=== PATIENT | female | born 1990 | race Caucasian/White ===

== ENCOUNTER 2019-01-19 21:48 | Emergency (ER) | payer OTHER ==
[2019-01-19 21:54] VITALS: BP 123/50; PULSE 77; TEMP 98.4; BMI 25.7
--- NOTE | 2019-01-19 21:55 | PDOC ---
Rapid Medical Evaluation Chief Complaint: Pain Time Seen by Provider: 01/19/19 21:51 Medical Evaluation: 01/19/19 21:52 I have performed a brief in-person evaluation of this patient. The patient presents with a chief complaint of: abd pain x 4 days. NO fevers/ no dysuria/ no N/V/C/D Pertinent physical exam findings: LMP 12/13 I have ordered the following: UA/ UCG The patient will proceed to the ED for further evaluation. 01/19/19 21:53 Discharge Disposition - Diagnosis Abdominal pain - Referrals - Patient Instructions - Post Discharge Activity
--- NOTE | 2019-01-19 22:49 | PDOC ---
History of Present Illness - General Chief Complaint: Pain Stated Complaint: BACK PAIN Time Seen by Provider: 01/19/19 21:51 History Source: Patient Exam Limitations: No Limitations - History of Present Illness Travel History: No Initial Comments: 01/19/19 22:45 HISTORY OF PRESENT ILLNESS: 28-year-old woman he denies medical history presents emergency department for evaluation of suprapubic pressure and pulling. Patient reports symptoms have been present for the past 2 days which is accompanied by urinary frequency. She denies any dysuria or hematuria. Patient denies any radiation of her pain and rates the pain 6/10. Patient denies any vaginal bleeding or vaginal discharge. Her last menstrual period was 4/. Patient is unsure if she is . No recent travel or sick contacts. PAST MEDICAL HISTORY: Denies past medical history SURGICAL HISTORY: Denies ALLERGIES: No known drug allergies REVIEW OF SYSTEMS General/Constitutional: Denies fever or chills. Denies weakness, weight change. HEENT: Denies change in vision. Denies ear pain or discharge. Denies sore throat. Cardiovascular: Denies chest pain or shortness of breath. Respiratory: Denies cough, wheezing, or hemoptysis. Gastrointestinal: Denies nausea, vomiting, diarrhea or constipation. Denies rectal bleeding. Genitourinary: see HPI Musculoskeletal: Denies joint or muscle swelling or pain. Denies neck or back pain. Skin and breasts: Denies rash or easy bruising. Neurologic: Denies headache, vertigo, loss of consciousness, or loss of sensation. Psychiatric: Denies depression or anxiety. Endocrine: Denies increased thirst. Denies abnormal weight change. Hematologic/Lymphatic: Denies anemia, easy bleeding, or history of blood clots. Allergic/Immunologic: Denies hives or skin allergy. Denies latex allergy. PHYSICAL EXAM General Appearance: Well-appearing, appropriately dressed. No apparent distress , no intoxication. Respiratory/Chest: Lungs CTAB. No shortness of breath, chest tenderness, respiratory distress, accessory muscle use. No crackles, rales, rhonchi, stridor , wheezing, dullness Cardiovascular: RRR. S1, S2. No JVD, murmur, bradycardia, tachycardia. Gastrointestinal/Abdominal: Normal bowel sounds. Abdomen soft, non-distended. Suprapubic tenderness. No rebound tenderness. No organomegaly, pulsatile mass, guarding, hernia, hepatomegaly, splenomegaly. Lymphatic: No adenopathy, tenderness. Musculoskeletal/Extremities: Normal inspection. FROM of all extremities, normal capillary refill. Pelvis Stable. No CVA tenderness. No tenderness to extremities, pedal edema, swelling, erythema or deformity. Past History - Past Medical History Allergies/Adverse Reactions: Allergies Allergy/AdvReac Type Severity Reaction Status Date / Time No Known Allergies Allergy Verified 01/19/19 21:54 Home Medications: Ambulatory Orders Cephalexin Monohydrate [Keflex -] 500 mg PO BID #20 capsule 01/20/19 95/Iron Fum/Folic/Dha [ + Dha Combo Pack] 1 each PO DAILY #30 combo..pkg 01/20/19 COPD: No - Suicide/Smoking/Psychosocial Hx Smoking History: Never smoked *Physical Exam - Vital Signs Last Vital Signs Temp Pulse Resp BP Pulse Ox 98.4 F 77 18 123/50 L 99 01/19/19 21:51 01/19/19 21:51 01/19/19 21:51 01/19/19 21:51 01/19/19 21:51 ED Treatment Course - LABORATORY CBC & Chemistry Diagram: 01/19/19 23:26 01/19/19 23:26 Medical Decision Making - Medical Decision Making 01/19/19 22:47 A/P: 28-year-old woman with urinary frequency and suprapubic pain for 2 days Mild suprapubic tenderness present. Normoactive bowel sounds. Abdomen soft nondistended. Differential diagnosis includes but is not limited to- normal , cystitis, ectopic , STI, ovarian torsion, fibroids, ovarian cysts Basic labs Urine testing Urinalysis with urine culture Transvaginal ultrasound Patient is refusing analgesics this time 01/19/19 23:49 Patient with positive UCG. Beta hCG has been added to previously collected laboratory specimen. 01/20/19 00:48 Ultrasound as read by imaging meat boner and slicer: Small intrauterine gestational sac with yolk sac and pole measuring gestational age 5 weeks 6 days. No detectable heart rate, possibly due to early gestational age/technical issues versus demise. Correlation with beta hCG levels and follow-up ultrasound recommended to reassess viability. No adnexal masses appreciated. No ovarian torsion. Color flow bilaterally with appropriate arterial and venous waveforms CBC is notable for mild anemia 9.3/30.1. No active bleeding at this time. CMP is unremarkable. Beta hCG is 9229. Urinalysis is pending 01/20/19 00:48 01/20/19 02:03 Urinalysis notable for 2+ leuk esterase and 10 wbc's on high-power field. Patient is I will treat with Keflex 500 mg twice a day pending cultures. I discussed the physical exam findings, ancillary test results and final diagnoses with the patient. I answered all of the patient's questions. The patient was satisfied with the care received and felt comfortable with the discharge plan and treatment plan. The patient will call their primary care physician within 24 hours to arrange follow-up and will return to the Emergency Department with any new, persistent or worsening symptoms. *DC/Admit/Observation/Transfer Diagnosis at time of Disposition: Qualifiers: Weeks of gestation: less than 8 weeks Qualified Code(s): Z3A.01 - Less than 8 weeks gestation of UTI (urinary tract infection) during Qualifiers: Trimester: first trimester Qualified Code(s): O23.41 - Unspecified infection of urinary tract in , first trimester - Discharge Dispostion Disposition: HOME Condition at time of disposition: Stable Decision to Admit order: No - Prescriptions Prescriptions: Cephalexin Monohydrate [Keflex -] 500 mg PO BID #20 capsule 95/Iron Fum/Folic/Dha [ + Dha Combo Pack] 1 each PO DAILY #30 combo..pkg - Referrals - Patient Instructions Additional Instructions: Take Keflex 500mg twice a day until all medications are complete. Finish all medicine even if you feel better. Take your vitamins. Your beta hCG is 9229 Keep well-hydrated. Avoid tobacco and alcohol as well as illegal drugs. Make an appointment with your MANAGER CONTROL for reevaluation. Return to the emergency department or your gynecologistin 2-3 days for repeat blood testing and ultrasound. Return to the emergency department immediately for severe pain, vaginal bleeding that requires more than 2 pads per hour or for any other symptoms. Thank you very much for choosing us to provide your emergent health care needs. [place] Keflex 500 mg dos veces al da hasta que todos los medicamentos estn completos. Termine todos los medicamentos incluso si se siente mejor. [place] johnny vitaminas prenatales. Tu beta hCG es 9229 Mantener kelly hidratado. Evite el tabaco y el alcohol, as kayden las drogas ilegales. Diana rory carlos con castro obstetra / gineclogo para castro reevaluacin. Regrese al departamento de emergencias oa castro gineclogo en 2-3 omer para repetir las pruebas de di y la ecografa. Regrese al departamento de emergencias inmediatamente para el dolor intenso, el sangrado vaginal que requiere ms de 2 compresas por hora o para cualquier otro sntoma. Muchas david por elegirnos para satisfacer johnny necesidades de atencin mdica de emergencia. - Post Discharge Activity
[2019-01-19 23:08] LABS: HCG,QUALITATIVE URINE Positive
[2019-01-19 23:31] LABS: BASO % 0.7 % (0-2.0); EOS % 1.2 % (0-4.5); HEMATOCRIT 30.1 % (32.4-45.2); HEMOGLOBIN 9.3 GM/dL (10.7-15.3); LYMPH % 33.2 % (8-40); MCH 21.2 pg (25.7-33.7); MEAN CELL VOLUME 68.5 fl (80-96); MEAN PLT VOLUME 7.2 fl (7.5-11.1); MONO % 9.5 % (3.8-10.2); NEUT % 55.4 % (42.8-82.8); PLATELET COUNT 319 K/MM3 (134-434); RDW 17.7 % (11.6-15.6); WHITE BLOOD COUNT 5.8 K/mm3 (4.0-10.0)
[2019-01-19 23:52] LABS: ALBUMIN 3.4 g/dl (3.4-5.0); BILIRUBIN,TOTAL 0.2 mg/dL (0.2-1); CALCIUM 8.4 mg/dL (8.5-10.1); CREATININE 0.7 mg/dL (0.55-1.3); POTASSIUM 3.9 mmol/L (3.5-5.1); TOT PROT 6.7 g/dl (6.4-8.2)
[2019-01-20 01:45] LABS: EPI CELLS 6.1 /HPF (0-5/HPF); PH,URINE 6.5 (5.0-8.0); URINE APPEARANCE CLEAR; URINE BACTERIA 263.2 /hpf (NEGATIVE); URINE BILIRUBIN NEGATIVE (NEGATIVE); URINE CASTS 4 /lpf (0-8); URINE COLOR YELLOW; URINE GLUCOSE (UA) NEGATIVE (NEGATIVE); URINE KETONE TRACE (NEGATIVE); URINE LEUK ESTERASE 2+ (NEGATIVE); URINE NITRITE NEGATIVE (NEGATIVE); URINE PROTEIN NEGATIVE (NEGATIVE); URINE RBC 1 /hpf (0-4); URINE UROBILINOGEN 0.2 mg/dL (0.2-1.0); URINE WBC 10 /hpf (0-5)
== END 2019-01-20 02:12 | disposition home or self-care (01) ==
LOC: JER 21:48
DX: O26.891 Other specified pregnancy related conditions, first trimester (principal); O23.41 Unspecified infection of urinary tract in pregnancy, first trimester; Z3A.01 Less than 8 weeks gestation of pregnancy
CPT/HCPCS: 36415; 76830-TC; 80053; 81003; 84702; 84703; 85025; 87086; 99283-25

== ENCOUNTER 2019-02-12 21:16 | Emergency (ER) | payer OTHER | END 2019-02-13 04:26 | disposition home or self-care (01) | LOC: JER 02-13 04:26 | DX: O26.891 Other specified pregnancy related conditions, first trimester (principal); O23.41 Unspecified infection of urinary tract in pregnancy, first trimester; Z3A.09 9 weeks gestation of pregnancy ==

== ENCOUNTER 2019-09-15 06:50 | Inpatient (IN) | payer OTHER ==
[~2019-09-15 06:50] MED LIST: DEXTROSE 5%-LACTATED RINGERS 1,000 ML IV SCH
[2019-09-15] MEDS ORDERED: AMPICILLIN - 2 GM in SODIUM CHLORIDE 100 ML IVPB ONE (07:15)
[2019-09-15 08:20] VITALS: BMI 32.9
[2019-09-15 08:32] LABS: BASO % 0.6 % (0-2.0); EOS % 0.7 % (0-4.5); HEMATOCRIT 28.2 % (32.4-45.2); HEMOGLOBIN 9.1 GM/dL (10.7-15.3); LYMPH % 38.2 % (8-40); MCH 20.9 pg (25.7-33.7); MCHC 32.1 g/dl (32.0-36.0); MEAN PLT VOLUME 8.3 fl (7.5-11.1); MONO % 7.2 % (3.8-10.2); NEUT % 53.3 % (42.8-82.8); PLATELET COUNT 270 K/MM3 (134-434); RBC 4.35 M/mm3 (3.60-5.2); RDW 18.8 % (11.6-15.6); WHITE BLOOD COUNT 4.4 K/mm3 (4.0-10.0)
[2019-09-15 08:45] LABS: INR 0.82 (0.83-1.09); PROTHROMBIN TIME (PATIENT) 9.7 SEC (9.7-13.0)
[2019-09-15 08:48] LABS: ACTIVATED PTT 26.8 SECONDS (25.2-36.5)
[2019-09-15 09:03] LABS: BLOOD UREA NITROGEN 11.7 mg/dL (7-18); CALCIUM 8.8 mg/dL (8.5-10.1); CREATININE 0.6 mg/dL (0.55-1.3); POTASSIUM 3.9 mmol/L (3.5-5.1)
[2019-09-15] MEDS ORDERED: BUTORPHANOL TARTRATE 1 MG/ML VIAL ONE ×2 (10:15)
[2019-09-15] MEDS ORDERED: PROMETHAZINE HCL 25 MG/1 ML VIAL ONE (10:15)
[2019-09-15] MEDS ORDERED: BUTORPHANOL TARTRATE 2 MG/ML VIAL IVPB ONE (11:00)
[2019-09-15] MEDS ORDERED: PROMETHAZINE HCL 25 MG/1 ML VIAL IVPB ONE (11:00)
[2019-09-15] MEDS ORDERED: AMPICILLIN SODIUM 1 GM VIAL ONE (11:13)
[2019-09-15] MEDS ORDERED: AMPICILLIN - 1 GM in SODIUM CHLORIDE 100 ML IVPB SCH (11:15)
[2019-09-15] MEDS ORDERED: OXYTOCIN 30 UNITS in 0.9% NS 30 UNIT/500 ML INFUS.BAG IVPB ONE (12:11)
--- NOTE | 2019-09-15 12:23 | HP ---
Past Medical History - Primary Care Physician PCP:: Dr Bob - Admission History Source: Patient - Past Medical History ...: 4 ...Para: 2 ...Term: 2 ...: 0 ...Spon : 0 ...Induced : 1 ...Multiple Gestation: 0 ...LMP: 12/12/18 ... Weeks Gestation by Dates: 39.4 ...EDC by Dates: 09/18/19 ...EDC by Sono: 09/23/19 - Past Surgical History Past Surgical History: Yes: None Hx Myomectomy: No Hx Transabdominal Cerclage: No - Smoking History Smoking history: Never smoked Have you smoked in the past 12 months: No - Alcohol/Substance Use Hx Alcohol Use: No - Social History Usual Living Arrangement: Yes: With Spouse ADL: Independent History of Recent Travel: No Home Medications - Allergies Allergies/Adverse Reactions: Allergies Allergy/AdvReac Type Severity Reaction Status Date / Time No Known Allergies Allergy Verified 09/15/19 07:29 - Home Medications Home Medications: Ambulatory Orders Pnv No.95/Ferrous Fum/Folic AC [ Vitamin Tablet] 1 each PO DAILY Family Medical History Family History: Unable to Obtain Physical Exam - Maternity Vital Signs: Vital Signs Temperature 98.4 F 09/15/19 11:00 Pulse Rate 74 09/15/19 11:00 Respiratory Rate 09/15/19 11:00 Blood Pressure 134/78 09/15/19 11:00 O2 Sat by Pulse Oximetry (%) - Abdominal Exam/OB Number of Fetuses: Single Presentation: Vertex - Labs Lab Results: CBC, BMP 09/15/19 08:00 09/15/19 08:00 Assessment/Plan 29 yo F P4P2 with 39,4 weeks on labor Plan Anticipated
[2019-09-15] MEDS ORDERED: OXYTOCIN 30 UNITS in 0.9% NS 30 UNIT/500 ML INFUS.BAG IVPB SCH (12:30)
[2019-09-15 12:41] LABS: ANISOCYTOSIS 2+; MACROCYTOSIS 0; OVALOCYTE 1+; PLATELET ESTIMATE NORMAL; TEAR DROP CELLS 1+
--- NOTE | 2019-09-15 13:41 | PN ---
Progress Note (short form) - Note Progress Note: Patient complaning of pelvic pressure, [place]: Ctx Q1-2 min FHR: Category I VE: 8/90/0 Anticipating
[2019-09-15] MEDS ORDERED: WITCH HAZEL 50% (TUCKS) 40 PAD/JAR PAD TP PRN (14:11)
[2019-09-15] MEDS ORDERED: BENZOCAINE 28 GM HEMORRHOIDAL OINTMENT TP PRN (14:11)
[2019-09-15] MEDS ORDERED: BISACODYL 10 MG SUPP.RECT RC PRN (14:11)
[2019-09-15] MEDS ORDERED: BENZOCAINE 20% 57 GM BOTTLE TP PRN (14:11)
[2019-09-15] MEDS ORDERED: D5W-LR W/ 20 UNITS OXYTOCIN 20 UNIT/1,000 ML INFUS.BAG IV SCH (14:15)
--- NOTE | 2019-09-15 14:18 | PN ---
Delivery - Delivery Vaginal Delivery: Spontaneous Type of Anesthesia: Local Episiotomy/Laceration: None, 1st degree ( vertex viable baby Girl, head deliverd spontanously sholder and the rest of the body followed without difficulty, Placenta deliverd spontanesouly intact, APGARS 9/9, 1st degree pernial laceration repaired with 2-O chromic, EBL 300 ML. Mother and baby in stable condition. Instrument and sponge count correct.) Delivery, Single - [place] Feeding Plan Initial Plan: Elected not to breastfeed exclusively throughout hospitalization
[2019-09-15] MEDS ORDERED: ACETAMINOPHEN 325 MG TABLET (FP) ONE (14:24)
[2019-09-15] MEDS ORDERED: IBUPROFEN 600 MG TABLET (FP) PO ONE (14:24)
[2019-09-15] MEDS: IBUPROFEN 600 MG TABLET (FP) PO PRN ×3 (14:25→21:50)
[2019-09-15] MEDS: ACETAMINOPHEN 325 MG TABLET (FP) PO PRN ×3 (14:25→21:50)
[2019-09-15] MEDS ORDERED: OXYTOCIN 20 UNITS in 0.9% NS 20 UNIT/1,000 ML INFUS.BAG IV SCH (14:30)
[2019-09-15] MEDS ORDERED: OXYTOCIN 20 UNITS in 0.9% NS 20 UNIT/1,000 ML INFUS.BAG IV ONE (15:41)
[2019-09-15] MEDS: FERROUS SO4 325 MG TABLET (FP) PO SCH (21:50)
[2019-09-16 08:03] LABS: BASO % 0.3 % (0-2.0); EOS % 0.9 % (0-4.5); HEMATOCRIT 26.9 % (32.4-45.2); HEMOGLOBIN 8.5 GM/dL (10.7-15.3); LYMPH % 27.5 % (8-40); MCH 20.7 pg (25.7-33.7); MCHC 31.6 g/dl (32.0-36.0); MEAN CELL VOLUME 65.5 fl (80-96); MEAN PLT VOLUME 8.2 fl (7.5-11.1); MONO % 5.6 % (3.8-10.2); NEUT % 65.7 % (42.8-82.8); PLATELET COUNT 247 K/MM3 (134-434); RDW 18.6 % (11.6-15.6); WHITE BLOOD COUNT 7.4 K/mm3 (4.0-10.0)
[2019-09-16] MEDS: PRENATAL VITAMINS W/ FOLIC ACID TABLET (FP) PO SCH (10:51)
[2019-09-16] MEDS: FERROUS SO4 325 MG TABLET (FP) PO SCH ×2 (10:52→21:59)
--- NOTE | 2019-09-16 11:35 | DS ---
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 Signs: Vital Signs Temperature 98.1 F 09/16/19 05:47 Pulse Rate 76 09/16/19 05:47 Respiratory Rate 18 09/16/19 05:47 Blood Pressure 132/55 L 09/16/19 05:47 O2 Sat by Pulse Oximetry (%) Constitutional: Yes: Well Nourished, No Distress, Calm Eyes: Yes: WNL, Conjunctiva Clear, EOM Intact HENT: Yes: WNL, Atraumatic, Normocephalic Neck: Yes: WNL, Supple, Trachea Midline Cardiovascular: Yes: WNL, Regular Rate and Rhythm Respiratory: Yes: WNL, Regular, CTA Bilaterally Gastrointestinal: Yes: WNL ...Rectal Exam: Yes: WNL Renal/: Yes: WNL ....Post : Yes: Uterus firm, Uterus non-tender, Slight lochia rubra Breast(s): Yes: WNL Musculoskeletal: Yes: WNL Extremities: Yes: WNL Edema: No Integumentary: Yes: WNL Neurological: Yes: WNL, Alert, Oriented ...Motor Strength: WNL Psychiatric: Yes: WNL, Alert, Oriented Labs: CBC, BMP 09/16/19 07:00 09/15/19 08:00 Delivery - Delivery Vaginal Delivery: Spontaneous Type of Anesthesia: Local Episiotomy/Laceration: Perineal Extension/lac, 1st degree EBL (cc): 300 Delivery, Single - Stages of Labor Date 1st Stage Initiatied: 09/15/19 Time 1st Stage Initiated: 05:00 Date 2nd Stage Initiated: 09/15/19 Time 2nd Stage Initiated: 13:50 Date of Delivery: 09/15/19 Time of Delivery: 13:55 Time Placenta Delivered: 13:58 Placenta: Yes: Spontaneous - Condition of Infant Automotive Service Director/Clinical Ob Present: No Infant Gender: Female Weight: 3.175 kg Position: OA Total Hours ROM (Hrs/Mins): 7hrs 58min - 1 Minute Total Score: 9 5 Minutes Total Score: 9 - [place] Feeding Plan Initial Plan: Elected not to breastfeed exclusively throughout hospitalization Discharge Summary Problems reviewed: Yes Reason For Visit: LABOR In labor Procedures: Principal: Other Procedures: NONE Hospital Course: Stable Health Concerns: NONE Plan of Treatment: F/U in [facility], [place] in 6 weeks Condition: Good - Instructions Diet, Activity, Other Instructions: Regular. F/U in [facility] Referrals: Lexii Mehta MD [Staff Physician] - Disposition: HOME - Home Medications Comprehensive Discharge Medication List: Ambulatory Orders Pnv No.95/Ferrous Fum/Folic AC [ Vitamin Tablet] 1 each PO DAILY
--- NOTE | 2019-09-16 11:41 | PN ---
Post Progress Note Post Day: 1 Type of Delivery: Vital Signs: Vital Signs Temperature 98.1 F 09/16/19 05:47 Pulse Rate 76 09/16/19 05:47 Respiratory Rate 18 09/16/19 05:47 Blood Pressure 132/55 L 09/16/19 05:47 O2 Sat by Pulse Oximetry (%) Breast Exam: Yes: Soft, Engorged Uterus: Yes: Fundus Firm, Fundus below umbilicus, Non-tender Abdomen/GI: Yes: Abdomen soft, Tolerating PO Lochia: Yes: Rubra Lochia, amount: Small Extremities: Yes: Calves non-tender Perineum: Yes: Intact Activity: Ambulating - Labs Labs: CBC WBC 7.4 K/mm3 (4.0-10.0) 09/16/19 07:00 RBC 4.10 M/mm3 (3.60-5.2) 09/16/19 07:00 Hgb 8.5 GM/dL (10.7-15.3) L 09/16/19 07:00 Hct 26.9 % (32.4-45.2) L 09/16/19 07:00 MCV 65.5 fl (80-96) L 09/16/19 07:00 MCH 20.7 pg (25.7-33.7) L 09/16/19 07:00 MCHC 31.6 g/dl (32.0-36.0) L 09/16/19 07:00 RDW 18.6 % (11.6-15.6) H 09/16/19 07:00 Plt Count 247 K/MM3 (134-434) 09/16/19 07:00 MPV 8.2 fl (7.5-11.1) 09/16/19 07:00 Absolute Neuts (auto) 4.9 K/mm3 (1.5-8.0) 09/16/19 07:00 Neutrophils % 65.7 % (42.8-82.8) D 09/16/19 07:00 Lymphocytes % 27.5 % (8-40) D 09/16/19 07:00 Monocytes % 5.6 % (3.8-10.2) 09/16/19 07:00 Eosinophils % 0.9 % (0-4.5) 09/16/19 07:00 Basophils % 0.3 % (0-2.0) 09/16/19 07:00 Nucleated RBC % 0 % (0-0) 09/16/19 07:00 Hypochromia 1+ 09/15/19 08:00 Platelet Estimate Normal 09/15/19 08:00 Polychromasia 1+ 09/15/19 08:00 Poikilocytosis 1+ 09/15/19 08:00 Anisocytosis 2+ 09/15/19 08:00 Microcytosis 2+ 09/15/19 08:00 Macrocytosis 0 09/15/19 08:00 Tear Drop Cells 1+ 09/15/19 08:00 Ovalocytes 1+ 09/15/19 08:00 Other Findings, Remarks: PPD#1 Patient seen and examined at bed side doing well, stable, has no complaints. VS: WNL PE: AAOX3 in NAD HEENT: NC/AT, supple Chest: CTA, S1/S2 AbD: Soft, NT, uterus firm below the Umbilicus, +ve BS EXT: -C/C/E, -ve Homans BL VE: normal Lochia A/P PPD#1, doing well, stable, has no complaints. Asymptomatic anemia, cont. iron Dc home tomorrow if cont. to be stable [facility]
[2019-09-16] MEDS ORDERED: SENNOSIDES/DOCUSATE COMBO (SENNA PLUS) TABLET (UD) PO PRN (22:00)
[2019-09-16] MEDS: IBUPROFEN 600 MG TABLET (FP) PO PRN (22:15)
[2019-09-16] MEDS: ACETAMINOPHEN 325 MG TABLET (FP) PO PRN (22:16)
[2019-09-17 09:23] VITALS: BP 130/85; PULSE 66; TEMP 98.1
[2019-09-17] MEDS: FERROUS SO4 325 MG TABLET (FP) PO SCH (09:48)
[2019-09-17] MEDS: PRENATAL VITAMINS W/ FOLIC ACID TABLET (FP) PO SCH (09:48)
[2019-09-17] MEDS: IBUPROFEN 600 MG TABLET (FP) PO PRN (10:43)
[2019-09-17] MEDS: ACETAMINOPHEN 325 MG TABLET (FP) PO PRN (10:44)
[2019-09-18 09:26] LABS: POC NITRAZINE POS
== END 2019-09-17 13:20 | disposition home or self-care (01) | DRG 560 ==
LOC: JLDR 06:50 → J3W 15:45
PROVIDERS: ADMIT Internal Medicine; ATTEND Internal Medicine
PROC: 0HQ9XZZ Repair Perineum Skin, External Approach (ICD-10-PCS; principal; 2019-09-15)
PROC: 10E0XZZ Delivery of Products of Conception, External Approach (ICD-10-PCS; 2019-09-15)
DX: O70.0 First degree perineal laceration during delivery (principal); Z3A.39 39 weeks gestation of pregnancy; Z37.0 Single live birth
CPT/HCPCS: 36415; 59409; 80048; 83986-QW; 85025; 85610; 85730; 86593; 86762; 86850; 86900; 86901; 87389

== ENCOUNTER 2023-01-04 19:19 | Emergency (ER) | payer OTHER ==
[2023-01-04 19:27] VITALS: RESP 16; BMI 28.5
[2023-01-04] MEDS ORDERED: ACETAMINOPHEN 1000 MG/100 ML BAG IVPB ONE (20:21)
[2023-01-04] MEDS ORDERED: ACETAMINOPHEN INJECTION 100 ML IVPB ONE (21:13)
[2023-01-04 21:39] LABS: BASO % 0.5 % (0-2.0); EOS % 0.6 % (0-4.5); HEMATOCRIT 24.6 % (32.4-45.2); HEMOGLOBIN 7.6 GM/dL (10.7-15.3); LYMPH % 26.1 % (8-40); MCHC 30.7 g/dl (32.0-36.0); MEAN CELL VOLUME 58.9 fl (80-96); MEAN PLT VOLUME 7.4 fl (7.5-11.1); MONO % 6.6 % (3.8-10.2); NEUT % 66.2 % (42.8-82.8); PLATELET COUNT 354 10^3/uL (134-434); RBC 4.18 M/mm3 (3.60-5.2); RDW 17.8 % (11.6-15.6); WHITE BLOOD COUNT 7.1 K/mm3 (4.0-10.0)
[2023-01-04 21:44] LABS: MCH 18.1 pg (25.7-33.7)
[2023-01-04 21:52] LABS: PH,URINE 5.5 (5.0-8.0); URINE APPEARANCE CLEAR; URINE BILIRUBIN NEGATIVE (NEGATIVE); URINE COLOR YELLOW; URINE GLUCOSE (UA) NEGATIVE (NEGATIVE); URINE KETONE NEGATIVE (NEGATIVE); URINE LEUK ESTERASE NEGATIVE (NEGATIVE); URINE NITRITE NEGATIVE (NEGATIVE); URINE PROTEIN NEGATIVE (NEGATIVE); URINE UROBILINOGEN 0.2 mg/dL (0.2-1.0)
[2023-01-04 22:20] LABS: ANISOCYTOSIS 2+; MACROCYTOSIS 0; TEAR DROP CELLS 1+
[2023-01-04 23:11] LABS: ALBUMIN 3.5 g/dl (3.4-5.0); BLOOD UREA NITROGEN 16.1 mg/dL (7-18); CALCIUM 8.9 mg/dL (8.5-10.1)
[2023-01-04 23:15] LABS: CREATININE 0.7 mg/dL (0.55-1.3)
[2023-01-04 23:16] LABS: BILIRUBIN,TOTAL 0.2 mg/dL (0.2-1); TOT PROT 7.2 g/dl (6.4-8.2)
[2023-01-05 01:54] VITALS: BP 111/42; PULSE 67; TEMP 98.2
== END 2023-01-05 01:59 | disposition home or self-care (01) ==
LOC: JER 19:19
PROC: 3E033NZ Introduction of Analgesics, Hypnotics, Sedatives into Peripheral Vein, Percutaneous Approach (ICD-10-PCS; principal; 2023-01-04)
DX: R10.31 Right lower quadrant pain (principal); D25.9 Leiomyoma of uterus, unspecified; D64.9 Anemia, unspecified; R11.10 Vomiting, unspecified
CPT/HCPCS: 36415; 74177-TC; 76830-TC; 80053; 81003; 83690; 84703; 85025; 87081; 87086; 99285-25; Q9967

== ENCOUNTER 2024-06-25 17:47 | Emergency (ER) | payer OTHER ==
[2024-06-25 17:58] VITALS: TEMP 99; BMI 30.4
[2024-06-25 21:18] LABS: BASO % 0.6 % (0-2.0); EOS % 0.4 % (0-4.5); HEMATOCRIT 29.2 % (32.4-45.2); HEMOGLOBIN 9.2 GM/dL (10.7-15.3); LYMPH % 24.2 % (8-40); MCHC 31.5 g/dl (32.0-36.0); MEAN CELL VOLUME 60.4 fl (80-96); MEAN PLT VOLUME 8.2 fl (7.5-11.1); MONO % 4.9 % (3.8-10.2); NEUT % 69.9 % (42.8-82.8); PLATELET COUNT 420 10^3/uL (134-434); RBC 4.84 M/mm3 (3.60-5.2); RDW 19.9 % (11.6-15.6); WHITE BLOOD COUNT 8.3 K/mm3 (4.0-10.0)
[2024-06-25] MEDS ORDERED: ONDANSETRON *ODT* 4 MG TABLET ONE (21:20)
[2024-06-25] MEDS ORDERED: ACETAMINOPHEN 325 MG TABLET (FP) ONE (21:21)
[2024-06-25] MEDS: ONDANSETRON *ODT* 4 MG TABLET SL ONE (21:39)
[2024-06-25] MEDS: ACETAMINOPHEN 325 MG TABLET (FP) PO ONE (21:39)
[2024-06-25 21:48] LABS: EPI CELLS >36 /uL (0-25.1); HYALINE CASTS 1 /uL (0-3.1); URINE APPEARANCE CLEAR; URINE BACTERIA 800 /uL (0-1359); URINE BILIRUBIN NEGATIVE (NEGATIVE); URINE COLOR ORANGE; URINE GLUCOSE (UA) NEGATIVE (NEGATIVE); URINE KETONE NEGATIVE (NEGATIVE); URINE LEUK ESTERASE 2+ (NEGATIVE); URINE NITRITE NEGATIVE (NEGATIVE); URINE PROTEIN NEGATIVE (NEGATIVE); URINE RBC 26 /uL (0-23.9); URINE UROBILINOGEN 0.2 mg/dL (0.2-1.0); URINE WBC 47 /uL (0-25.8)
[2024-06-25 21:56] LABS: POTASSIUM 3.9 mmol/L (3.5-5.1)
[2024-06-25 21:58] LABS: BLOOD UREA NITROGEN 9.9 mg/dL (7-18)
[2024-06-25 21:59] LABS: ALBUMIN 3.5 g/dl (3.4-5.0)
[2024-06-25 22:01] LABS: CREATININE 0.5 mg/dL (0.55-1.3)
[2024-06-25 22:03] LABS: BILIRUBIN,TOTAL 0.2 mg/dL (0.2-1); TOT PROT 7.7 g/dl (6.4-8.2)
[2024-06-25] MEDS: ONDANSETRON 4 MG TABLET PO ONE (22:11)
[2024-06-25] MEDS ORDERED: CEFTRIAXONE 1 GM in DEXTROSE 5%-WATER - 100 ML IVPB ONE (22:27)
[2024-06-25 22:39] LABS: HIV INTERPRETATION NEGATIVE (NEGATIVE)
[2024-06-25 23:35] LABS: ANISOCYTOSIS 1+
[2024-06-25] MEDS ORDERED: CEPHALEXIN MONOHYDRATE 500 MG CAPSULE (UD) ONE (23:49)
[2024-06-25] MEDS: CEPHALEXIN MONOHYDRATE 500 MG CAPSULE (UD) PO ONE (23:56)
[2024-06-26 00:52] VITALS: BP 122/78; PULSE 74; RESP 20
== END 2024-06-26 00:52 | disposition home or self-care (01) ==
LOC: JER 17:47
DX: O23.41 Unspecified infection of urinary tract in pregnancy, first trimester (principal); O26.891 Other specified pregnancy related conditions, first trimester; R10.30 Lower abdominal pain, unspecified; O21.9 Vomiting of pregnancy, unspecified; O99.891 Other specified diseases and conditions complicating pregnancy; R51.9 Headache, unspecified; Z3A.12 12 weeks gestation of pregnancy
CPT/HCPCS: 36415; 76817-TC; 80053; 81003; 84702; 84703; 85025; 86803; 87086; 87389; 99284-25; Q0162